=== PATIENT | female | born 1995 | race Caucasian/White ===

== ENCOUNTER 2017-08-21 19:41 | Emergency (ER) | payer MEDICAID ==
[2017-08-21 20:20] VITALS: BP 130/68
[2017-08-21] MEDS ORDERED: Sulfamethox/Trimethoprim DS 800/160* TAB PO ONE (21:58)
[2017-08-21] MEDS ORDERED: Phenazopyridine TAB* 100 MG PO ONE (21:59)
--- NOTE | 2017-08-21 22:11 | UC ---
Complaint Female HPI - HPI Summary HPI Summary: ONSET YESTERDAY OF DYSURIA, FREQUENCY, URGENCY. NO FEVER, NAUSEA OR BACK PAIN. CURRENTLY ON MENSES. - History Of Current Complaint Chief Complaint: UCGU Stated Complaint: UTI Time Seen by Provider: 08/21/17 21:38 Hx Obtained From: Patient Hx Last Menstrual Period: 08/20/17 Onset/Duration: Gradual Onset, Lasting Days - 1 DAY, Still Present Severity Initially: Mild Severity Currently: Moderate Pain Intensity: 6 Pain Scale Used: 0-10 Numeric Character: Burning Aggravating Factor(s): Urination Associated Signs And Symptoms: Positive: Negative - Allergies/Home Medications Allergies/Adverse Reactions: Allergies Allergy/AdvReac Type Severity Reaction Status Date / Time azithromycin [From Zithromax] Allergy Severe Swelling Verified 08/21/17 21:39 Of Face,Lips,& Throat Home Medications: Home Medications Copper (Iud) [Paragard IUD] 1 unit IU DAILY 08/21/17 [History Confirmed 08/21/17 ] PMH/Surg Hx/FS Hx/Imm Hx Previously Healthy: Yes - Surgical History Surgical History: Yes Surgery Procedure, Year, and Place: left ankle screws, gall bladder,T&A, c- section - Family History Known Family History: Positive: Hypertension - Social History Alcohol Use: None Substance Use Type: None Smoking Status (MU): Never Smoked Tobacco Household Exposure Type: Cigarettes - Immunization History Vaccination Up to Date: Yes Review of Systems Constitutional: Negative Respiratory: Negative Cardiovascular: Negative Gastrointestinal: Abdominal Pain Genitourinary: Dysuria, Frequency, Urgency All Other Systems Reviewed And Are Negative: Yes Physical Exam Triage Information Reviewed: Yes Appearance: Well-Appearing, No Pain Distress, Well-Nourished Vital Signs: Initial Vital Signs Temp 98.5 F 08/21/17 20:14 Pulse 69 08/21/17 20:14 Resp 16 08/21/17 20:14 BP 130/68 08/21/17 20:14 Pulse Ox 100 08/21/17 20:14 Vital Signs Reviewed: Yes Eyes: Positive: Conjunctiva Clear ENT: Positive: Hearing grossly normal Neck: Positive: Supple Respiratory: Positive: No respiratory distress, No accessory muscle use Cardiovascular: Positive: Pulses Normal Abdomen Description: Positive: Nontender, Soft. Negative: CVA Tenderness (R), CVA Tenderness (L) Musculoskeletal: Positive: No Edema Neurological: Positive: Alert Psychological: Positive: Age Appropriate Behavior Skin: Negative: rashes Complaint Female Dx - Differential Dx/Diagnosis Provider Diagnoses: UTI Discharge - Discharge Plan Condition: Stable Disposition: HOME Prescriptions: Phenazopyridine TAB* [Pyridium TAB*] 200 mg PO TID #6 tab Sulfamethox/Trimethoprim DS* [Bactrim DS 800/160 TAB*] 1 tab PO BID #9 tab Patient Education Materials: Urinary Tract Infection in Women (ED) Referrals: Glen Reddy MD [Primary Care Provider] - If Needed
== END 2017-08-21 22:04 | disposition home or self-care (01) ==
LOC: UCCORT 19:41
DX: N39.0 Urinary tract infection, site not specified (principal); Z88.1 Allergy status to other antibiotic agents
CPT/HCPCS: 87086; 99212; A9270-GY; G0463

== ENCOUNTER 2018-07-31 19:08 | Emergency (ER) | payer OTHER ==
[2018-07-31 20:35] VITALS: BP 123/69
[2018-07-31 21:04] LABS: Influenza A Molecular NEGATIVE (Negative); Influenza B Molecular NEGATIVE (Negative)
--- NOTE | 2018-07-31 21:30 | UC ---
FLU HPI - HPI Summary HPI Summary: 23-year-old female presents with onset of fever, fatigue, body aches, sore throat, wheezing, chest "burning", and a nonproductive cough last evening. States she's been exposed to influenza and strep throat in her household during the past week. Reports history of asthma although is not required treatment in 2 or 3 years. Denies nasal congestion,dysphagia, shortness of breath, abdominal pain, nausea, vomiting, or diarrhea. - History of Current Complaint Chief Complaint: UCRespiratory Stated Complaint: COUGH,SORE THROAT,SORE EARS, BODY ACHES Time Seen by Provider: 07/31/18 21:19 Hx Obtained From: Patient Hx Last Menstrual Period: n/a Pain Intensity: 4 - Allergy/Home Medications Allergies/Adverse Reactions: Allergies Allergy/AdvReac Type Severity Reaction Status Date / Time azithromycin [From Zithromax] Allergy Severe Swelling Verified 07/31/18 20:26 Of Face,Lips,& Throat Home Medications: Home Medications Acetaminophen [Tylenol] 650 mg PO ONCE PRN 07/31/18 [History Confirmed 07/31/18] Implanon 1 unit SUBCUT DAILY 07/31/18 [History] PMH/Surg Hx/FS Hx/Imm Hx Previously Healthy: Yes Respiratory History: Asthma - Surgical History Surgical History: Yes Surgery Procedure, Year, and Place: left ankle screws, gall bladder,T&A, c- section - Family History Known Family History: Positive: Hypertension - Social History Occupation: Employed Full-time Lives: With Family Alcohol Use: Occasionally Substance Use Type: None Smoking Status (MU): Never Smoked Tobacco Household Exposure Type: Cigarettes - Immunization History Vaccination Up to Date: Yes Review of Systems All Other Systems Reviewed And Are Negative: Yes Constitutional: Positive: Fever, Chills, Fatigue Skin: Negative: Rash Eyes: Negative: Drainage, Eye Redness ENT: Positive: Sore Throat. Negative: Ear Ache, Nasal Discharge, Sinus Congestion, Sinus Pain/Tenderness Respiratory: Positive: Cough, Other - wheezing. Negative: Shortness Of Breath Cardiovascular: Negative: Palpitations, Chest Pain Gastrointestinal: Negative: Abdominal Pain, Vomiting, Diarrhea, Nausea Genitourinary: Positive: Negative Musculoskeletal: Positive: Negative Neurological: Positive: Headache Is Patient Immunocompromised?: No Physical Exam - Summary Physical Exam Summary: GENERAL APPEARANCE: Well developed, well nourished, alert and cooperative, and appears to be in no acute distress. EYES: Conjunctiva clear. No drainage. Vision is grossly intact. EARS: External auditory canals and tympanic membranes clear, hearing grossly intact. NOSE: No nasal discharge. THROAT: Mild pharyngeal erythema. Surgically absent tonsils. Oral cavity normal.Teeth and gingiva in good general condition. NECK: Neck supple, non-tender without lymphadenopathy. CARDIAC: Normal S1 and S2. No S3, S4 or murmurs. Rhythm is regular. There is no peripheral edema, cyanosis or pallor. Extremities are warm and well perfused. Capillary refill is less than 2 seconds. LUNGS: Clear to auscultation without rales, rhonchi, wheezing or diminished breath sounds. Dry non-productive cough. ABDOMEN: Positive bowel sounds. Soft, nondistended, nontender. No guarding or rebound. No masses or hepatosplenomegally. MUSKULOSKELETAL: ROM intact to all extremities. No joint erythema or tenderness. Normal muscular development. Normal gait. SKIN: Skin normal color, texture and turgor with no lesions or eruptions. Triage Information Reviewed: Yes Vital Signs: Initial Vital Signs Temp 98.7 F 07/31/18 20:29 Pulse 82 07/31/18 20:29 Resp 16 07/31/18 20:29 BP 123/69 07/31/18 20:29 Pulse Ox 99 07/31/18 20:29 Vital Signs Reviewed: Yes Diagnostics - Laboratory Diagnostic Studies Completed/Ordered: Rapid flu negative. Rapid strep negative. Flu Course/Dx - Course Course Of Treatment: 23-year-old female presents with onset of fever, fatigue, body aches, sore throat, wheezing, chest "burning", and a nonproductive cough last evening. States she's been exposed to influenza and strep throat in her household during the past week. Reports history of asthma although is not required treatment in 2 or 3 years. Denies nasal congestion,dysphagia, shortness of breath, abdominal pain, nausea, vomiting, or diarrhea. Afebrile. Vital signs stable. Exam reveals an adult female in no acute distress with mild pharyngeal erythema, surgically absent tonsils, clear bilateral breath sounds, occasional dry nonproductive cough, and otherwise unremarkable exam. Rapid flu negative. Rapid strep negative. Recommending symptomatic treatment for a viral URI including Tessalon Perles every 8 hours as needed for cough. First dose was given in the clinic. An albuterol inhaler was also dispensed to the patient for any shortness of breath or wheezing. She is to use 2 puffs every 4-6 hours as needed. He is to follow-up with her primary care provider if symptoms do not improve within 7 days. Anticipatory guidance and warning symptoms were reviewed with the patient. Verbalizes understanding and agrees with plan of care. - Differential Dx/Diagnosis Differential Diagnosis/HQI/PQRI: Bronchitis, Influenza, Upper Respiratory Infection, Other - Strer pharyngitis Provider Diagnosis: Viral URI with cough Discharge - Sign-Out/Discharge Documenting (check all that apply): Patient Departure All imaging exams completed and their final reports reviewed: No Studies - Discharge Plan Condition: Stable Disposition: HOME Prescriptions: Benzonatate CAP* [Tessalon 100 MG CAP*] 100 mg PO TID PRN #30 cap PRN Reason: Cough Patient Education Materials: Upper Respiratory Infection (ED) Referrals: Glen Reddy MD [Primary Care Provider] - 7 Days (If no improvement in symptoms.) Additional Instructions: Your history and exam are consistent with a viral upper respiratory infection. Viral infections do not respond to antibiotics and are limited to the treatment of symptoms. Viral infections typically run their course in 7-10 days. Drink plenty of fluids to avoid dehydration especially if you are running any fever. Use Tessalon Perles 1 cap every 8 hours as needed for cough. You were given first dose in the clinic. Use albuterol inhaler 2 puffs every 4-6 hours as needed for shortness of breath or wheezing. Take over the counter acetaminophen (Tylenol) or ibuprofen (Advil, Motrin) according to directions as needed for pain or fever. Use salt water gargles several times a day if you have a sore throat. You may also use Chloraseptic spray or Cepacol lonzenges according to directions which contain a numbing medication and can provide some temporary relief from your sore throat. Follow up with your primary care provider in 7 days if symptoms persist. Seek immediate medical attention in the emergency room if you have fever greater than 100.5 F despite taking acetaminophen or ibuprofen, have chest pain , difficulty breathing, are unable to swallow, or have any worsening of symptoms. - Billing Disposition and Condition Condition: STABLE Disposition: Home
[2018-07-31] MEDS ORDERED: Albuterol HFA INHALER* 8 gm MDI INH ONE (21:35)
[2018-07-31] MEDS ORDERED: Benzonatate CAP* 100 MG PO ONE (21:35)
== END 2018-07-31 21:47 | disposition home or self-care (01) ==
LOC: UCCORT 19:08
DX: J06.9 Acute upper respiratory infection, unspecified (principal); R05 Cough; J45.909 Unspecified asthma, uncomplicated; Z88.1 Allergy status to other antibiotic agents
CPT/HCPCS: 87651; 99212; A9270-GY; G0463

== ENCOUNTER 2018-08-22 10:36 | Emergency (ER) | payer OTHER ==
[2018-08-22 10:57] VITALS: BP 117/70
--- NOTE | 2018-08-22 11:31 | UC ---
Respiratory Complaint HPI - HPI Summary HPI Summary: 23 yo female with nasal congestion/postnasal drip and sorethroat >1 week no f/c no n/v/d no CP or SOB - History of Current Complaint Chief Complaint: UCGeneralIllness Stated Complaint: ST,SINUS COMPLAINT Time Seen by Provider: 08/22/18 11:26 Hx Obtained From: Patient Hx Last Menstrual Period: unknown, IUD Onset/Duration: Gradual Onset Timing: Constant Severity Initially: Moderate Pain Intensity: 4 Pain Scale Used: 0-10 Numeric Character: Cough: Nonproductive Aggravating Factors: Nothing Associated Signs And Symptoms: Positive: URI, Nasal Congestion, Hoarseness, Sinus Discomfort - Allergies/Home Medications Allergies/Adverse Reactions: Allergies Allergy/AdvReac Type Severity Reaction Status Date / Time azithromycin [From Zithromax] Allergy Severe Swelling Verified 08/22/18 10:55 Of Face,Lips,& Throat PMH/Surg Hx/FS Hx/Imm Hx Previously Healthy: Yes - Surgical History Surgical History: Yes Surgery Procedure, Year, and Place: left ankle screws, gall bladder,T&A, c- section - Family History Known Family History: Positive: Hypertension - Social History Alcohol Use: Occasionally Substance Use Type: None Smoking Status (MU): Never Smoked Tobacco Household Exposure Type: Cigarettes - Immunization History Vaccination Up to Date: Yes Review of Systems All Other Systems Reviewed And Are Negative: Yes Constitutional: Positive: Negative Skin: Positive: Negative Eyes: Positive: Negative ENT: Positive: Sore Throat, Sinus Congestion, Sinus Pain/Tenderness Respiratory: Positive: Cough Cardiovascular: Positive: Negative Gastrointestinal: Positive: Negative Genitourinary: Positive: Negative Motor: Positive: Negative Neurovascular: Positive: Negative Musculoskeletal: Positive: Negative Neurological: Positive: Negative Psychological: Positive: Negative Physical Exam Triage Information Reviewed: Yes Appearance: Well-Appearing, No Pain Distress, Well-Nourished Vital Signs: Initial Vital Signs Temp 98.3 F 08/22/18 10:54 Pulse 66 08/22/18 10:54 Resp 16 08/22/18 10:54 BP 117/70 08/22/18 10:54 Pulse Ox 100 08/22/18 10:54 Vital Signs Reviewed: Yes Eyes: Positive: Conjunctiva Clear ENT: Positive: Hearing grossly normal, Nasal congestion, Sinus tenderness - LMAX >RMAX, Uvula midline. Negative: Nasal drainage, Tonsillar swelling, Tonsillar exudate, Trismus, Muffled voice, Hoarse voice Neck: Positive: Supple, Nontender, No Lymphadenopathy Respiratory: Positive: Lungs clear, Normal breath sounds, No respiratory distress Cardiovascular: Positive: RRR, No Murmur Musculoskeletal: Positive: ROM Intact, No Edema Neurological: Positive: Alert Psychological Exam: Normal Skin Exam: Normal Respiratory Course/Dx - Differential Dx/Diagnosis Provider Diagnosis: Sinusitis, acute Discharge - Sign-Out/Discharge Documenting (check all that apply): Patient Departure All imaging exams completed and their final reports reviewed: No Studies - Discharge Plan Condition: Stable Disposition: HOME Prescriptions: Amoxicillin PO (*) [Amoxicillin 875 MG (*)] 875 mg PO BID #14 tab Fluconazole 150 MG (NF) [Diflucan 150 mg (NF)] 150 mg PO ONCE #1 tab Patient Education Materials: Sinusitis (ED) Referrals: Glen Reddy MD [Primary Care Provider] - 5 Days (if not better) - Billing Disposition and Condition Condition: STABLE Disposition: Home
== END 2018-08-22 11:37 | disposition home or self-care (01) ==
LOC: UCCORT 10:36
DX: J01.90 Acute sinusitis, unspecified (principal); J02.9 Acute pharyngitis, unspecified; Z88.1 Allergy status to other antibiotic agents
CPT/HCPCS: 99212; G0463

== ENCOUNTER 2019-08-13 17:35 | Emergency (ER) | payer OTHER ==
--- OUTSIDE RECORDS SUMMARY | 2019-08-13 17:45 | XMS REPORT | Continuity of Care Document ---
:1995 External Reference #:[id number] Author Name Glen Reddy M.D. Address [address] [place] [address] [address] [place] [address] Problems Active Problems Provider Date Overweight Jas Schneider SNUFF DRIER Onset: 10/09/2011 Asthma without status asthmaticus Glen Reddy M.D. Onset: 01/04/2012 Allergic rhinitis Glen Reddy M.D. 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 Nausea Onset: 11/21/2014 Cyst of ovary Onset: 09/29/2014 Plantar fasciitis Onset: 10/30/2018 Post-term Onset: 07/29/2015 Onset: 11/25/2014 Rectal hemorrhage Onset: 01/14/2015 Shoulder pain Onset: 08/26/2018 Toothache Onset: 06/25/2014 Vaginal pain Onset: 11/25/2013 Abdominal pain Onset: Amniotic fluid leaking Onset: delivery - delivered Onset: Cyst of ovary Onset: Dental caries Onset: Foot pain Onset: Gastroesophageal reflux disease Onset: Mesenteric lymphadenitis Onset: Nausea Onset: Plantar fasciitis Onset: Post-term Onset: Onset: Rectal hemorrhage Onset: Shoulder pain Onset: Toothache Onset: Vaginal pain Onset: Social History Type Date Description Comments Sex Unknown ETOH Use Never used alcohol Tobacco Use Start: Unknown Patient has never smoked Seat Belt/Car Seat Sometimes uses seat belt Smoke Alarms Yes Smoke Alarms Carbon Monoxide Detector: Yes Allergies, Adverse Reactions, Alerts Active Allergies Reaction Severity Comments Date Zithromax RASH 09/21/2013 Inactive Allergies NKDA 10/08/2011 Medications Active Medications SIG Qnty Indications Ordering Provider Date Amoxicillin 2 by mouth twice 40tabs K02.9 Glen Reddy, 07/31/2019 500mg a day M.D. Tablets Hydrocodone-Acetamino 1 tab by mouth 15tabs K02.9 Glen Reddy, 2019 phen three times a day M.D. 7.5-325mg Tablets as needed Nexplanon use as directed Z30.49 Glen Reddy, 01/14/2019 68mg Implant by payer specialist q3 M.D. years Ibuprofen 1 by mouth three 90tabs N94.5 Glen Reddy, 01/14/2019 800mg Tablets times a day as M.D. needed Phentermine HCL 1 by mouth every 30caps E66.01 Glen Reddy, 11/18/2018 37.5mg in the morning M.D. Capsules Lo Loestrin Fe tab one by mouth 3tabs Z30.09 Glen Reddy, 09/20/2015 1mg-10 every day M.D. mcg / 10 mcg Tablets Z30.41 History Medications Amoxicillin 1 by mouth three 30tabs Glen Reddy, 02/02/2019 - 500mg Tablets times a day M.D. 02/12/2019 Medications Administered in Office Medication SIG Qnty Indications Ordering Provider Date Intradermal Mantoux Wyatt Jas FNP 05/31/2016 Injection Intradermal Mantoux Jas Schneider 05/31/2016 Injection Depo Provera Injection Wyatt Jas FNP 07/21/2013 Injection Depo Provera Injection Wyatt Jas FNP 04/21/2013 Injection Intradermal Mantoux Jas Schneider 03/03/2013 Injection Depo Provera Injection Jas Schneider 01/27/2013 Injection Depo Provera Injection Jas Schneider SNUFF DRIER 11/04/2012 Injection Solu-Medrol 125MG Jas Schneider SNUFF DRIER 05/20/2012 Injection Intradermal Mantoux Jas Schneider SNUFF DRIER 04/25/2012 Injection Immunizations CPT Code Status Date Vaccine Lot # [id number] Given 03/17/2015 Flu Vaccine [id number] 59817 Given 03/05/2013 Flu Vaccine [id number] 49905 Given 04/29/2012 MMR [id number] 99866 Given 03/12/2007 TDaP 86618 Given 10/06/2000 IPV 21819 Given 10/06/2000 MMR 43177 Given 10/06/2000 DTaP NDC [id number] ML 0.50 90509 Given 02/25/1998 MMR 47899 Given 02/25/1998 DTaP NDC [id number] ML 0.50 76869 Given 02/25/1998 Hemophilus Influenza B Vaccine 52096 Given 01/07/1996 Hemophilus Influenza B Vaccine 98666 Given 01/07/1996 DTaP NDC [id number] ML 0.50 98953 Given 01/07/1996 IPV 06695 Given 01/07/1996 Hep B To Age 18 06518 Given 1995 IPV 25123 Given 1995 DTaP NDC [id number] ML 0.50 36187 Given 1995 Hemophilus Influenza B Vaccine 68361 Given 1995 Hep B To Age 18 80623 Given 1995 IPV 88866 Given 1995 DTaP NDC [id number] ML 0.50 51350 Given 1995 Hemophilus Influenza B Vaccine 26385 Given 1995 Hep B To Age 18 Vital Signs Date Vital Result Comment 07/31/2019 9:15am BP Systolic 122 mmHg BP Diastolic 63 mmHg Height 67.5 inches 5'7.50" Weight 214.00 lb BMI (Body Mass Index) 33.0 kg/m2 Heart Rate 62 /min Respiratory Rate 16 /min 02/02/2019 11:15am BP Systolic 122 mmHg BP Diastolic 62 mmHg Height 67.5 inches 5'7.50" Weight 202.00 lb BMI (Body Mass Index) 31.2 kg/m2 Heart Rate 64 /min Respiratory Rate 16 /min Results Test Acquired Date Facility Test Result H/L Range Note CBS W/Automated 02/24/2019 [place] White Blood Count 11.2 K/uL High 3.1- 10.7 1 Diff Red Blood Count 4.32 M/uL Normal 3.90-5.40 Hemoglobin 12.6 gm/dL Normal 11.6-15.8 Hematocrit 38.1 % Normal 36.0-46.1 Mean Cell Volume 88.2 fl Normal 80.9-99.0 Mean Corpuscular HGB 29.2 pg Normal 25.9-32.7 Mean Corpuscular HGB Conc 33.1 g/dL Normal 30.8-34.3 Platelet Count 269 K/uL Normal 155-360 Red Cell Distri Width SD 40.0 fl Normal 36-47 Red Cell Distri Width %CV 12.4 % Normal 11.7-14.4 Mean Platelet Volume 9.7 fl Normal 8.9-12.4 Neut% 68.7 % Normal 40.4-72.8 Lymph % 23.3 % Normal 20.0-42.0 Kings % 4.7 % Normal 4.3-13.2 Eo% 2.5 % Normal 0.0-6.6 Bas% 0.4 % Normal 0.0-1.1 Immature Grans 0.4 % Normal 0.0-5.0 NRBC % 0.0 /100WBC < 10/ 100 WBC Neut# 7.72 K/uL High 1.8-7.0 Lymph # 2.62 K/uL Normal 1.0-4.0 Kings # 0.53 K/uL Normal 0.3-0.9 Eos # 0.28 K/uL Normal 0.0-0.5 Baso # 0.04 K/uL Normal 0.0-0.1 Immature Grans Absolute 0.04 K/uL NRBC # 0.00 K/uL Laboratory test 02/24/2019 [place] HCG,Serum NEGATIVE (Negative) 2 finding (Qualitative) Comprehensive 02/24/2019 [place] Glucose 91 mg/dL Normal 74-106 Metabolic Panel BUN 12 mg/dL Normal 7-18 Creatinine 0.7 mg/dL Normal 0.6-1.3 Glom Filtration Rate, Estimate >60 mL/min >60 If >60 mL/min >60 3 BUN/Creat 17.1 ratio Sodium 139 mmol/L Normal 136-145 Potassium 4.0 mmol/L Normal 3.5-5.1 Chloride 106 mmol/L Normal 98-107 Carbon Dioxide 26 mmol/L Normal 21-32 Anion Gap 7 mEq/L Low 8-16 Calcium 9.0 mg/dL Normal 8.5-10.1 Total Protein 7.4 g/dL Normal 6.4-8.2 Albumin 3.6 g/dL Normal 3.4-5.0 Globulin 3.8 g/dL Normal 1.9-4.3 Alb/Glob 0.9 ratio Bilirubin,Total 0.4 mg/dL Normal 0.2-1.0 Sgot/Ast 9 U/L Low 15-37 4 SGPT/Alt 20 U/L Normal 12-78 Alkaline Phosphatase 68 U/L Normal 45-117 Ua RFX Micro & Culture II 02/24/2019 [place] Urine Color YELLOW Yellow Urine Clarity SL CLOUDY Clear Urine Glucose - Dipstick NEGATIVE mg/dL Negative Urine Bilirubin - Dipstick NEGATIVE Negative Urine Ketone NEGATIVE mg/dL Negative Urine Specific [place] 1.020 Normal 1.010-1.030 Urine Blood NEGATIVE 0-2 Urine PH 6.5 Normal 6.5-7.5 Urine Protein - Dipstick NEGATIVE mg/dL Negative Urine Urobilinogen - Dipstick 0.2 E.U./dL Normal 0.2-1.0 Urine Nitrite - Dipstick NEGATIVE Negative Urine Leuk Esterase NEGATIVE Negative Source: URINE, CLEAN CAT <SEE NOTE> 5 1 LOWER RT ABD PAIN 2 Method: Quidel QuickVue One-Step Immunoassay 3 Note: Persistent reduction for 3 months or more in an eGFR <60 mL/min/1.73 m2 defines CKD. Patients with eGFR values >/=60 mL/min/1.73 m2 may also have CKD if evidence of persistent proteinuria is present. The original MDRD equation for estimated GFR is not valid for patients less than 18 years of age. Additional information may be found at www.kdoqi.org. 4 Values below the stated reference ranges of AST and ALT can be seen in normal populations. Clinical correlation is suggested. 5 URINE, CLEAN CATCH Procedures Description No Information Available Medical Devices Description No Information Available Encounters Type Date Location Provider Dx Diagnosis Office Visit 07/31/2019 Glen Araujo, L20.9 Atopic dermatitis, 9:00a M.DWestley unspecified J30.9 Allergic rhinitis, unspecified J45.909 Unspecified asthma, uncomplicated E66.01 Morbid (severe) obesity due to excess calories F41.9 Anxiety disorder, unspecified F33.9 Major depressive disorder, recurrent, unspecified G47.00 Insomnia, unspecified N94.5 Secondary dysmenorrhea N92.0 Excessive and frequent menstruation with regular cycle Z30.49 Encounter for surveillance of other contraceptives N83.202 Unspecified ovarian cyst, left side K02.9 Dental caries, unspecified Office Visit 02/02/2019 11:45a Natalya Glen Reddy, L20.9 Atopic dermatitis, M.DWestley unspecified J30.9 Allergic rhinitis, unspecified J45.909 Unspecified asthma, uncomplicated E66.01 Morbid (severe) obesity due to excess calories F41.9 Anxiety disorder, unspecified F33.9 Major depressive disorder, recurrent, unspecified G47.00 Insomnia, unspecified N94.5 Secondary dysmenorrhea N92.0 Excessive and frequent menstruation with regular cycle Z30.49 Encounter for surveillance of other contraceptives N83.202 Unspecified ovarian cyst, left side J02.0 Streptococcal pharyngitis Assessments Date Code Description Provider 07/31/2019 L20.9 Atopic dermatitis, unspecified Glen Reddy M.D. 07/31/2019 J30.9 Allergic rhinitis, unspecified Glen Reddy M.D. 07/31/2019 J45.909 Unspecified asthma, uncomplicated Glen Reddy M.D. 07/31/2019 E66.01 Morbid (severe) obesity due to excess BarryGlen dumont M.D. calories 07/31/2019 F41.9 Anxiety disorder, unspecified Glen Reddy M.D. 07/31/2019 F33.9 Major depressive disorder, recurrent, Glen Reddy M.D. unspecified 07/31/2019 G47.00 Insomnia, unspecified Glen Reddy M.D. 07/31/2019 N94.5 Secondary dysmenorrhea Glen Reddy M.D. 07/31/2019 N92.0 Excessive and frequent menstruation with Glen Reddy M.D. regular cycle 07/31/2019 Z30.49 Encounter for surveillance of other Glen Reddy M.D. contraceptives 07/31/2019 N83.202 Unspecified ovarian cyst, left side Glen Reddy M.D. 07/31/2019 K02.9 Dental caries, unspecified Glen Reddy M.D. 02/02/2019 L20.9 Atopic dermatitis, unspecified Glen Reddy M.D. 02/02/2019 J30.9 Allergic rhinitis, unspecified Glen Reddy M.D. 02/02/2019 J45.909 Unspecified asthma, uncomplicated Glen Reddy M.D. 02/02/2019 E66.01 Morbid (severe) obesity due to excess Glen Reddy M.D. calories 02/02/2019 F41.9 Anxiety disorder, unspecified Glen Reddy M.D. 02/02/2019 F33.9 Major depressive disorder, recurrent, Glen Reddy M.D. unspecified 02/02/2019 G47.00 Insomnia, unspecified Glen Reddy M.D. 02/02/2019 N94.5 Secondary dysmenorrhea Glen Reddy M.D. 02/02/2019 N92.0 Excessive and frequent menstruation with Glen Reddy M.D. regular cycle 02/02/2019 Z30.49 Encounter for surveillance of other Glen Reddy M.D. contraceptives 02/02/2019 N83.202 Unspecified ovarian cyst, left side Glen Reddy M.D. 02/02/2019 J02.0 Streptococcal pharyngitis Glen Reddy M.D. Plan of Treatment Future Appointment(s):08/31/2019 12:30 pm - Glen Reddy M.D. at [facility]2019 - BarryGlen dumont M.D.L20.9 Atopic dermatitis, unspecifiedComments:SKIN CARE INSTRUCTIONS LOTION OR BABY OIL 2-3 APPLICATION PER DAYUSE MOISTURIZING SOAPAVOID PROLONGED WATER EXPOSUREAVOID USING HOT WATER IN SSKQKMA56.9 Allergic rhinitis, unspecifiedComments:INCREASE PO FLUID USE ANTIHISTAMINE PRN SECOND HAND SMOKING [id number] Unspecified asthma, uncomplicatedComments:MDI / NEBULIZER TX PRN AVOID EXPOSURE TO SMOKING OR DRZUXT61.01 Morbid (severe) obesity due to excess caloriesComments:WT LOSS COUNCELLINGEXERCISEDIET IYSKLUJTTPKI44.9 Anxiety disorder, unspecifiedComments:COUNCELLING AND REASSURANCE RELAXATION TECHNIQUES DISCUSSEDCOUNSELED RE: STRESSORS IN LIFE AVOID ALLENERGY/HIGH CAFFEINE OTHGFAZ59.9 Major depressive disorder, recurrent, unspecifiedComments:COUNCELLING AND REASSURANCE RELAXATION TECHNIQUES DISCUSSED COUNSELED RE: STRESSORS IN LIFEG47.00 Insomnia, unspecifiedComments:COUNCELLING AND REASSURANCE RELAXATION TECHNIQUES DISCUSSED COUNSELED RE: STRESSORS IN LIFE TYLENOLPM OR MOTRIN PM PRNN94.5 Secondary dysmenorrheaComments:MOTRIN OR TYLENOL PRNCOUNCELLING AND AZGBAADOGFBS15.0 Excessive and frequent menstruation with regular cycleComments:OBSERVEF/U WITH [employer] SERVICE ENGINEER PRNZ30.49 Encounter for surveillance of other contraceptivesComments:F/U WITH [employer] SERVICE ENGINEER PT TOLD SHE MAY NEED TO REPLACE HER IMPLANT AND IF FAIL MAY CHOOSE DIFF. [place] ( GOT WHILE HAD IUD)N83.202 Unspecified ovarian cyst, left sideComments:F/U U/S IN 6 EDNIKTU87.9 Dental caries, unspecifiedNew Medication:Amoxicillin 500 mg - 2 by mouth twice a dayHydrocodone-Acetaminophen 7.5-325 mg - 1 tab by mouth three times a day as neededComments:F/U WITH DENTAL Functional Status Description No Information Available Mental Status Description No Information Available Referrals Description No Information Available
== END 2019-08-13 18:46 | disposition left against medical advice (07) ==
LOC: UCCORT 17:35
DX: Z53.21 Procedure and treatment not carried out due to patient leaving prior to being seen by health care provider (principal)